=== PATIENT | female | born 1980 | race Caucasian/White ===

== ENCOUNTER 2016-09-23 19:50 | Emergency (ER) | payer MEDICAID ==
[~2016-09-23] VITALS: Ht 162.6 cm; Wt 77.1 kg
[~2016-09-23 19:50] MED LIST: ACET500C4 PO
[2016-09-23] MEDS ORDERED: AMOXICILLIN TRIHYDRATE 250 MG CAPSULE PO ONE (20:15)
[2016-09-23] MEDS ORDERED: ACETAMINOPHEN 325 MG TABLET PO ONE (20:15)
[2016-09-23] MEDS ORDERED: predniSONE 20 MG TABLET PO ONE (20:15)
[2016-09-23] MEDS ORDERED: AMOXICILLIN TRIHYDRATE 250 MG CAPSULE ONE (20:37)
[2016-09-23] MEDS ORDERED: predniSONE 10 MG TABLET ONE (20:37)
[2016-09-23] MEDS ORDERED: predniSONE 50 MG TABLET ONE (20:37)
[2016-09-23] MEDS ORDERED: ACETAMINOPHEN ES 500 MG TABLET ONE (20:37)
--- NOTE | 2016-09-23 20:46 | NUR ---
Pt ambulatory to bed 4, dr molina at bedside for exam.
--- NOTE | 2016-09-23 20:47 | NUR ---
Pt dc;ed home w/ aci , pt given script for amox po.
[2016-09-23 20:48] VITALS: BP 120/78
== END 2016-09-23 20:49 | disposition home or self-care (01) ==
LOC: ER 19:54
DX: J03.90 Acute tonsillitis, unspecified (principal); K21.9 Gastro-esophageal reflux disease without esophagitis; G43.909 Migraine, unspecified, not intractable, without status migrainosus; Z91.010 Allergy to peanuts
CPT/HCPCS: 99284; A4663; J7512 ×2

== ENCOUNTER 2017-02-08 17:03 | Emergency (ER) | payer MEDICAID ==
[~2017-02-08] VITALS: Ht 162.6 cm; Wt 68.0 kg
--- NOTE | 2017-02-08 17:55 | NUR ---
MSE COMPLETED, PT D/C'D HOME , ACI/RX X1 GIVEN. PT AMBULATED W/O DIFF/TOOK ALL BELONGINGS.
[2017-02-08 17:57] VITALS: BP 114/71
== END 2017-02-08 17:57 | disposition home or self-care (01) ==
LOC: ER 17:06
DX: H10.9 Unspecified conjunctivitis (principal); Z91.010 Allergy to peanuts; K21.9 Gastro-esophageal reflux disease without esophagitis; G43.909 Migraine, unspecified, not intractable, without status migrainosus
CPT/HCPCS: A4663

== ENCOUNTER 2017-09-15 09:46 | Emergency (ER) | payer MEDICAID ==
[~2017-09-15] VITALS: Ht 162.6 cm; Wt 75.7 kg
[2017-09-15 11:06] LABS: *BILIRUBIN,URIN NEGATIVE (NEGATIVE); *BLOOD, URINE NEGATIVE (NEGATIVE); *CLARITY,URINE SLIGHTLY HAZY (CLEAR); *COLOR,URINE YELLOW (YELLOW); *KETONES,URINE NEGATIVE (NEGATIVE); *PROTEIN,URINE NEGATIVE (NEGATIVE); *UROBILINOGEN,URINE 0.2 E.U./dl (NORMAL); LEUKOCYTE ESTERASE ,URINE TRACE (NEGATIVE); NITRITE, URINE NEGATIVE (NEGATIVE); UGLUCOSE NEGATIVE (NEGATIVE)
[2017-09-15 11:07] LABS: *URINE HCG, QUAL NEGATIVE (NEGATIVE); BACTERIA,URINE MODERATE /HPF (NONE SEEN); RBC,URINE 0-3 /HPF (0-3); SQUAMOUS EPITHELIAL CELL,UR FEW /HPF (NONE SEEN)
[2017-09-15] MEDS ORDERED: HYDROCODONE/APAP 10-325 MG TABLET ONE (11:12)
[2017-09-15] MEDS ORDERED: NITROFURANTOIN/NITROFURAN MAC 100 MG CAPSULE PO ONE (11:15)
[2017-09-15] MEDS ORDERED: HYDROCODONE/APAP 10-325 MG TABLET PO ONE (11:15)
[2017-09-15 11:20] VITALS: BP 112/76
--- NOTE | 2017-09-15 11:22 | NUR ---
Patient discharged to home in stable conditon. Written and verbal after care instructions given. Patient verbalizes understanding of instructions. Pt left ER w/ steady gait accompained by .
== END 2017-09-15 11:24 | disposition home or self-care (01) ==
LOC: ER 09:46
DX: N39.0 Urinary tract infection, site not specified (principal); K21.9 Gastro-esophageal reflux disease without esophagitis; Z91.010 Allergy to peanuts; Z91.018 Allergy to other foods; Z79.899 Other long term (current) drug therapy
CPT/HCPCS: 84703; A4663

== ENCOUNTER 2020-04-10 22:43 | Emergency (ER) | payer MEDICAID ==
[~2020-04-10] VITALS: Ht 165.1 cm; Wt 76.7 kg
[2020-04-10 23:04] LABS: *BILIRUBIN,URIN NEGATIVE (NEGATIVE); *BLOOD, URINE 1+ (NEGATIVE); *CLARITY,URINE SLIGHTLY CLOUDY (CLEAR); *COLOR,URINE YELLOW (YELLOW); *KETONES,URINE NEGATIVE (NEGATIVE); LEUKOCYTE ESTERASE ,URINE 2+ (NEGATIVE); NITRITE, URINE NEGATIVE (NEGATIVE); UGLUCOSE NEGATIVE (NEGATIVE)
[2020-04-10 23:06] LABS: *URINE HCG, QUAL NEGATIVE (NEGATIVE)
--- NOTE | 2020-04-10 23:10 | NUR ---
Patient arrived at the ER with CC of severe pain on right flank and lower abdominal area. Patient AAOx4. No cardiac and respiratory concern.
[2020-04-10] MEDS ORDERED: MORPHINE SULFATE 2 MG/1 ML DISP.SYRIN IV ONE (23:15)
[2020-04-10] MEDS ORDERED: ONDANSETRON 4 MG/2 ML VIAL IV ONE (23:15)
[2020-04-10] MEDS ORDERED: IV NORMAL SALINE 1000 ML BAG IV ONE (23:15)
[2020-04-10 23:18] LABS: BASOPHILS # (AUTO) 0.1 K/uL (0.0-8.0); BASOPHILS % (AUTO) 0.6 % (0.0-2.0); EOSINOPHILS % (AUTO) 0.5 % (0.0-7.0); HEMATOCRIT 38.4 % (31.2-41.9); HEMOGLOBIN 13.3 g/dL (10.9-14.3); LYMPHOCYTES # (AUTO) 1.9 K/uL (20.0-40.0); LYMPHOCYTES % (AUTO) 20.7 % (20.5-51.5); MEAN CORPUSCULAR HEMOGLOBIN 33.4 uug (24.7-32.8); MEAN CORPUSCULAR HGB CONC 35 g/dL (32.3-35.6); MONOCYTES # (AUTO) 0.9 K/uL (2.0-10.0); MONOCYTES % (AUTO) 10.3 % (0.0-11.0); NEUTROPHILS # (AUTO) 6.2 K/uL (1.8-8.9); NEUTROPHILS % (AUTO) 67.9 % (38.5-71.5); PLATELET COUNT (AUTO) 202 K/uL (179-408); WHITE BLOOD COUNT (AUTO) 9.1 K/uL (3.8-11.8)
[2020-04-10 23:24] LABS: CREATININE 0.9 mg/dL (0.6-1.3); POTASSIUM 3.6 mmol/L (3.5-5.1)
[2020-04-10] MEDS ORDERED: ONDANSETRON 4 MG/2 ML VIAL ONE (23:28)
[2020-04-10] MEDS ORDERED: MORPHINE SULFATE 4 MG/1 ML DISP.SYRIN ONE (23:28)
[2020-04-10 23:35] LABS: BILIRUBIN,DIRECT 0.1 mg/dL (0.0-0.2); BILIRUBIN,TOTAL 0.3 mg/dL (0.2-1.0)
--- NOTE | 2020-04-10 23:35 | NUR ---
Called Radiology and informed [place] pt is ready for CT.
[2020-04-10 23:36] LABS: TOTAL PROTEIN, SERUM 7.3 g/dL (6.4-8.2)
[2020-04-10] MEDS ORDERED: IV NORMAL SALINE 250 ML IV ONE (23:44)
[2020-04-10] MEDS ORDERED: IOHEXOL 300MG/ML 100 ML INFUS..BTL ONE (23:44)
[2020-04-10] MEDS ORDERED: SWABABLE VALVE TRANSFER SET EA MC ONE (23:44)
[2020-04-11 00:03] LABS: WBC,URINE 20-50 /HPF (0-3)
[2020-04-11 00:04] LABS: BACTERIA,URINE MODERATE /HPF (NONE SEEN); SQUAMOUS EPITHELIAL CELL,UR FEW /HPF (NONE SEEN); URINE AMORPHOUS URATE FEW /HPF
--- NOTE | 2020-04-11 00:05 | NUR ---
Back from CT.
[2020-04-11] MEDS ORDERED: CEFTRIAXONE 1 G in IV DEXTROSE 5% 50 ML IV ONE (00:30)
[2020-04-11] MEDS ORDERED: CEFTRIAXONE /D5W 50ML IVPB **ER PYXIS IV ONE (00:31)
--- NOTE | 2020-04-11 02:25 | NUR ---
Patient discharged to home in stable condition. Written and verbal after care instructions given. Patient verbalizes understanding of instructions. Stressed follow up or return to ER for worsening s/s. Pt ambulated out of the ER with steady gait. All belongings with pt.
[2020-04-11 02:29] VITALS: BP 100/61
== END 2020-04-11 02:25 | disposition home or self-care (01) ==
LOC: ER 22:45
DX: N10 Acute pyelonephritis (principal); Z87.19 Personal history of other diseases of the digestive system; R10.31 Right lower quadrant pain; Z91.010 Allergy to peanuts; Z91.018 Allergy to other foods; Z83.3 Family history of diabetes mellitus
CPT/HCPCS: 36415; 74178; 76856; 80048; 80076; 81001; 83690; 84703; 85025; 87077; 87086; 87186; 96361; 96365; 96375; 99285; J0696; J2270; J2405; Q9967; A4663; J7030; J7050

== ENCOUNTER 2022-01-01 22:00 | Emergency (ER) | payer MEDICAID ==
[~2022-01-01] VITALS: Ht 157.5 cm; Wt 78.9 kg
--- NOTE | 2022-01-01 22:40 | NUR ---
Pt walked in to ED c/o abdominal pain x 1 week, with chills. No nausea, vomiting, diarrhea noted.
[2022-01-01 22:58] LABS: *BILIRUBIN,URIN NEGATIVE (NEGATIVE); *BLOOD, URINE 1+ (NEGATIVE); *COLOR,URINE YELLOW (YELLOW); *KETONES,URINE NEGATIVE (NEGATIVE); *UROBILINOGEN,URINE 0.2 E.U./dl (NORMAL); LEUKOCYTE ESTERASE ,URINE 1+ (NEGATIVE); NITRITE, URINE POSITIVE (NEGATIVE); PH,URINE 5.5 (5.0-8.0); UGLUCOSE NEGATIVE (NEGATIVE)
--- NOTE | 2022-01-01 23:00 | NUR ---
Seen and examined by Dr Reid for MSE.
[2022-01-01 23:04] LABS: *CLARITY,URINE HAZY (CLEAR)
[2022-01-01 23:05] LABS: HEMATOCRIT 41.7 % (31.2-41.9); MEAN CORPUSCULAR HEMOGLOBIN 32.7 uug (24.7-32.8); MEAN CORPUSCULAR VOLUME 96.6 fL (75.5-95.3); PLATELET COUNT (AUTO) 206 K/uL (179-408)
[2022-01-01 23:06] LABS: BACTERIA,URINE MANY /HPF (NONE SEEN)
[2022-01-01 23:07] LABS: *URINE HCG, QUAL NEGATIVE (NEGATIVE); SQUAMOUS EPITHELIAL CELL,UR FEW /HPF (NONE SEEN)
[2022-01-01 23:08] LABS: CREATININE 0.8 mg/dL (0.6-1.3); POTASSIUM 4.8 mmol/L (3.5-5.1)
[2022-01-01 23:14] LABS: BILIRUBIN,DIRECT 0.1 mg/dL (0.0-0.2); BILIRUBIN,TOTAL 0.4 mg/dL (0.2-1.0)
[2022-01-01] MEDS ORDERED: KETOROLAC TROMETHAMINE 60 MG INJ IM ONE (23:15)
[2022-01-01] MEDS ORDERED: CEFTRIAXONE 1 G VIAL IM ONE (23:45)
[2022-01-02] MEDS ORDERED: CEFTRIAXONE 1 G VIAL ONE (00:08)
[2022-01-02] MEDS ORDERED: KETOROLAC TROMETHAMINE 60 MG INJ IM ONE (00:08)
[2022-01-02] MEDS ORDERED: LIDOCAINE HCL 1% 20 ML VIAL IJ ONE (00:15)
[2022-01-02] MEDS ORDERED: LIDOCAINE HCL 1% 20 ML VIAL ONE (00:25)
--- NOTE | 2022-01-02 00:37 | NUR ---
Accompanied Dr Reid for pelvic exam.
[2022-01-02] MEDS ORDERED: FLUCONAZOLE 100 MG TABLET ONE (00:43)
[2022-01-02] MEDS ORDERED: FLUCONAZOLE 100 MG TABLET PO ONE (00:45)
--- NOTE | 2022-01-02 01:00 | NUR ---
US tech at bedside.
--- NOTE | 2022-01-02 01:31 | NUR ---
Ambulated to bathroom with steady gait.
[2022-01-02] MEDS ORDERED: NITR100C11 PO (02:56)
--- NOTE | 2022-01-02 03:03 | NUR ---
Patient discharged to home via private vehicle in stable condition. VSS. NAD. Ambulated with steady gait. Written and verbal after care instructions given. Patient verbalizes understanding of instructions. Stressed follow up or return to ER for worsening s/s. Addendum: 01/02/22 at 0305 by JAIDA Patient is accompanied by .
[2022-01-02 03:05] VITALS: BP 110/70
== END 2022-01-02 03:06 | disposition home or self-care (01) ==
LOC: ER 22:00
DX: N39.0 Urinary tract infection, site not specified (principal); R10.31 Right lower quadrant pain; R10.32 Left lower quadrant pain
CPT/HCPCS: 80076; 80048; 81001; 84703; 83690; 85025; 87186; 87086; 87077; 36415; 99284; 76856; 96372 ×2; J0696; J1885; J3490; A4663

== ENCOUNTER 2022-01-26 13:24 | Emergency (ER) | payer MEDICAID ==
[~2022-01-26] VITALS: Ht 160 cm; Wt 78.9 kg
[~2022-01-26 13:24] MED LIST changes: +NITR100C11 PO
[2022-01-26 13:49] LABS: *BILIRUBIN,URIN NEGATIVE (NEGATIVE); *BLOOD, URINE 1+ (NEGATIVE); *CLARITY,URINE CLOUDY (CLEAR); *COLOR,URINE YELLOW (YELLOW); *KETONES,URINE NEGATIVE (NEGATIVE); *UROBILINOGEN,URINE 0.2 E.U./dl (NORMAL); LEUKOCYTE ESTERASE ,URINE 2+ (NEGATIVE); NITRITE, URINE POSITIVE (NEGATIVE); PH,URINE 5.5 (5.0-8.0); UGLUCOSE NEGATIVE (NEGATIVE)
--- NOTE | 2022-01-26 13:59 | NUR ---
Dr Bain evaluating the pt.
[2022-01-26 14:25] LABS: BACTERIA,URINE MANY /HPF (NONE SEEN); RBC,URINE 20-50 /HPF (0-3); SQUAMOUS EPITHELIAL CELL,UR MODERATE /HPF (NONE SEEN); WBC,URINE TNTC /HPF (0-3)
[2022-01-26] MEDS ORDERED: CEPH500T PO (14:29)
[2022-01-26 15:09] VITALS: BP 134/75
--- NOTE | 2022-01-26 15:09 | NUR ---
Patient discharged to home in stable condition. Written and verbal after care instructions given. Patient verbalizes understanding of instructions. Stressed follow up or return to ER for worsening s/s.
== END 2022-01-26 15:10 | disposition home or self-care (01) ==
LOC: ER 13:24
DX: N39.0 Urinary tract infection, site not specified (principal); Z83.3 Family history of diabetes mellitus; Z91.014 Allergy to mammalian meats; Z87.442 Personal history of urinary calculi
CPT/HCPCS: A4663

== ENCOUNTER 2023-07-28 07:42 | Emergency (ER) | payer MEDICAID ==
[~2023-07-28] VITALS: Ht 160 cm; Wt 74.8 kg
[~2023-07-28 07:42] MED LIST changes: +CEPH500T PO
[2023-07-28] MEDS ORDERED: KETOROLAC TROMETHAMINE 30 MG INJ ONE (08:03)
[2023-07-28] MEDS: KETOROLAC TROMETHAMINE 15 MG INJ IVP ONE (08:10)
[2023-07-28 08:19] LABS: BASOPHILS % (AUTO) 0.3 % (0.0-2.0); EOSINOPHILS # (AUTO) 0.1 K/uL (0.0-0.7); EOSINOPHILS % (AUTO) 1.9 % (0.0-7.0); HEMATOCRIT 28.4 % (31.2-41.9); HEMOGLOBIN 9.5 g/dL (10.9-14.3); LYMPHOCYTES # (AUTO) 1.8 K/uL (0.8-4.8); LYMPHOCYTES % (AUTO) 38.8 % (20.5-51.5); MEAN CORPUSCULAR HEMOGLOBIN 33.9 uug (24.7-32.8); MEAN CORPUSCULAR HGB CONC 34 g/dL (32.3-35.6); MEAN CORPUSCULAR VOLUME 100.6 fL (75.5-95.3); MONOCYTES # (AUTO) 0.3 K/uL (0.1-1.30); MONOCYTES % (AUTO) 5.5 % (0.0-11.0); NEUTROPHILS # (AUTO) 2.5 K/uL (1.8-8.9); NEUTROPHILS % (AUTO) 53.5 % (38.5-71.5); PLATELET COUNT (AUTO) 110 K/uL (179-408); RED BLOOD CELL COUNT(AUTO) 2.82 MIL/uL (3.63-4.92); RED CELL DISTRIBUTION WIDTH 14.2 % (12.3-17.7); WHITE BLOOD COUNT (AUTO) 4.7 K/uL (3.8-11.8)
[2023-07-28 08:31] LABS: DIFFERENTIAL COMMENT 1
[2023-07-28 08:42] LABS: CALCIUM 8.5 mg/dL (8.5-10.1); CREATININE 0.8 mg/dL (0.6-1.3); POTASSIUM 4.2 mmol/L (3.5-5.1)
[2023-07-28 09:06] VITALS: BP 139/68; O2SAT 100
== END 2023-07-28 09:07 | disposition home or self-care (01) ==
LOC: ER 07:42
DX: N94.6 Dysmenorrhea, unspecified (principal); D64.9 Anemia, unspecified; G43.909 Migraine, unspecified, not intractable, without status migrainosus; R10.2 Pelvic and perineal pain; K21.9 Gastro-esophageal reflux disease without esophagitis; Z98.890 Other specified postprocedural states; Z79.899 Other long term (current) drug therapy
CPT/HCPCS: 36415; 85025; A4606; A4663; J1885